=== PATIENT | female | born 1955 | race Two or more races ===

== ENCOUNTER 2017-10-26 09:52 | Emergency (ER) | payer OTHER ==
[~2017-10-26] VITALS: Ht 154.9 cm; Wt 63.5 kg
[2017-10-26 09:56] VITALS: BP 133/81
== END 2017-10-26 10:30 | disposition home or self-care (01) ==
LOC: ER 09:54
DX: H73.22 Unspecified myringitis, left ear (principal); R51 Headache; Z88.6 Allergy status to analgesic agent
CPT/HCPCS: 99283; A4606; Z7610

== ENCOUNTER 2021-01-18 18:12 | Emergency (ER) | payer BC, OTHER ==
[~2021-01-18] VITALS: Ht 157.5 cm; Wt 74.8 kg
[2021-01-18 18:31] VITALS: BP 139/86
== END 2021-01-18 19:04 | disposition home or self-care (01) ==
LOC: ER 18:14
DX: Z77.098 Contact with and (suspected) exposure to other hazardous, chiefly nonmedicinal, chemicals (principal); I10 Essential (primary) hypertension; Z88.6 Allergy status to analgesic agent

== ENCOUNTER 2022-05-10 11:24 | Emergency (ER) | payer MEDICARE, OTHER ==
[~2022-05-10] VITALS: Ht 157.5 cm; Wt 79.4 kg
[2022-05-10 12:22] VITALS: BP 112/58
[2022-05-10] MEDS ORDERED: ACETAMINOPHEN 325 MG TABLET PO ONE (13:30)
[2022-05-10] MEDS ORDERED: TYL2T PO (14:16)
[2022-05-10] MEDS ORDERED: ACETAMINOPHEN ES 500 MG TABLET ONE (14:18)
--- NOTE | 2022-05-10 14:28 | NUR ---
Ambulatory. Gait even and steady. Patient discharged to home in stable condition. Written and verbal after care instructions given. Patient verbalizes understanding of instruction.
== END 2022-05-10 14:29 | disposition home or self-care (01) ==
LOC: ER 11:29
DX: S06.0XAA Concussion with loss of consciousness status unknown, initial encounter (principal); S13.4XXA Sprain of ligaments of cervical spine, initial encounter; R51.9 Headache, unspecified; M54.2 Cervicalgia; I10 Essential (primary) hypertension; Z88.8 Allergy status to other drugs, medicaments and biological substances; Z79.1 Long term (current) use of non-steroidal anti-inflammatories (NSAID); W20.8XXA Other cause of strike by thrown, projected or falling object, initial encounter; Y93.89 Activity, other specified; Y92.89 Other specified places as the place of occurrence of the external cause; Y99.8 Other external cause status
CPT/HCPCS: 70450-TC; 72125-TC

== ENCOUNTER 2024-10-17 12:32 | Emergency (ER) | payer MEDICARE, OTHER ==
[~2024-10-17] VITALS: Ht 157.5 cm; Wt 81.6 kg
[~2024-10-17 12:32] MED LIST: TYL2T PO
[2024-10-17 13:05] LABS: PLATELET COUNT (AUTO) 346 K/uL (150-450); RED BLOOD CELL COUNT(AUTO) 4.00 MIL/uL (4.0-5.2); RED CELL DISTRIBUTION WIDTH 14.9 % (11.5-15.0); WHITE BLOOD COUNT (AUTO) 7.3 K/uL (4.3-11.0)
[2024-10-17] MEDS ORDERED: ACETAMINOPHEN ES 500 MG TABLET ONE (13:10)
[2024-10-17 13:14] LABS: CALCIUM, SERUM 9.8 mg/dL (8.5-10.1); CREATININE 0.8 mg/dL (0.6-1.3); SODIUM SERUM 141.0 mmol/L (136-145); UREA NITROGEN, BLOOD 17.0 mg/dL (7-18)
[2024-10-17] MEDS: ACETAMINOPHEN ES 500 MG TABLET PO ONE (13:19)
[2024-10-17 13:28] LABS: ASPARTATE AMINOTRANSFERASE 19.0 U/L (15-37); TOTAL PROTEIN, SERUM 7.7 g/dL (6.4-8.2)
[2024-10-17 13:33] LABS: APPEARANCE,URINE CLEAR (CLEAR); BLOOD, URINE Negative Ery/uL (NEGATIVE); LEUKOCYTE ESTERASE ,URINE Negative (NEGATIVE); UGLUCOSE Negative (NEGATIVE)
[2024-10-17 13:34] LABS: NITRITE, URINE NEGATIVE (NEGATIVE)
[2024-10-17] MEDS ORDERED: LIDOCAINE 5% (PATCH) 1 EA PATCH TP ONE (14:51)
[2024-10-17] MEDS ORDERED: MORPHINE SULFATE INJ 2 MG/ML DISP.SYRIN ONE (14:52)
[2024-10-17] MEDS: LIDOCAINE 5% (PATCH) 1 EA PATCH TP STA (15:02)
[2024-10-17] MEDS: MORPHINE SULFATE INJ 2 MG/ML DISP.SYRIN IM ONE (15:05)
[2024-10-17] MEDS ORDERED: METH4TAB17 PO (15:23)
[2024-10-17 16:25] VITALS: BP 135/63; TEMP 98.1; O2SAT 96
== END 2024-10-17 16:26 | disposition home or self-care (01) ==
LOC: ER 13:07
DX: R10.13 Epigastric pain (principal); I10 Essential (primary) hypertension; Z88.6 Allergy status to analgesic agent; Z79.899 Other long term (current) drug therapy
CPT/HCPCS: 99285; 74176; 96372 ×2; 85025; 80048; 87086; 83690; 80076; 81003; 36415; J2270; J2919